=== PATIENT | female | born 1975 | race Caucasian/White ===

== ENCOUNTER 2016-09-08 22:38 | Emergency (ER) | payer OTHER ==
[2016-09-08 23:41] LABS: HCG,QUALITATIVE URINE NEGATIVE; SPECIFIC GRAVITY 1.015 (1.001-1.030); URINE BILIRUBIN NEGATIVE (NEGATIVE); URINE BLOOD NEGATIVE (NEGATIVE); URINE GLUCOSE (UA) NEGATIVE (NEGATIVE); URINE LEUKOCYTE ESTERASE NEGATIVE (NEGATIVE); URINE NITRITE NEGATIVE (NEGATIVE); URINE PROTEIN NEGATIVE (NEGATIVE); URINE UROBILINOGEN NORMAL (0-1 mg/dl)
[2016-09-08 23:42] LABS: URINE APPEARANCE CLEAR; URINE COLOR AMBER
[2016-09-09 00:25] LABS: ABSOLUTE NEUTROPHIL COUNT 4.3 K/mm3 (1.8-7.7); BASO % 0.4 % (0.2-1.0); EOS # 0.1 (0.0-0.5); EOS % 0.9 % (0.9-2.9); HEMATOCRIT 35.5 % (37.0-47.0); HEMOGLOBIN 11.6 gm/l (12.0-16.0); IMM NEUT% 0.3 % (0-1); LYMPH % 29.6 % (15-45); MEAN CELL VOLUME 93.9 fl (81.0-99.0); MEAN CORPUSCULAR HEMOGLOBIN 30.7 pg (27.0-31.0); MEAN CORPUSCULAR HGB CONC 32.7 g/dl (33.0-37.0); MONO # 0.4 (0.0-0.8); MONO % 5.6 % (4-12); NEUT % 63.2 % (43-75); PLATELET COUNT 223 K/mm3 (130-400); RED CELL DISTRIBUTION WIDTH 11.9 % (11.5-14.5)
[2016-09-09 00:42] LABS: ALB/GLOB RATIO 1.5 (>1.0); CALCIUM 8.5 mg/dL (8.6-10.3)
[2016-09-09] MEDS ORDERED: KETOROLAC TROMETHAMINE 60 MG/2 ML VIAL ONE (02:34)
[2016-09-09] MEDS ORDERED: METOCLOPRAMIDE HCL 5 MG/ML 2ML VIAL ONE (02:35)
--- NOTE | 2016-09-09 07:32 | US ---
ABDOMINAL-LIMITED COMPARISON: None HISTORY: Right upper quadrant pain for one week. Nausea and vomiting. FINDINGS: Gall bladder: Length 5.6 cm and wall thickness 2.2 mm. Nonmobile echogenic nonshadowing structure within the lumen, 3 x 5 x 3 mm, evidence of a polyp. Common hepatic duct: 1 mm. Common bile duct: 2.4 mm. IMPRESSION: 1. 5 mm gallbladder polyp. No cholelithiasis or cholecystitis. 2. Normal diameter of the bile ducts. Preliminary report by [facility] radiologist Deric Thompson MD, 09/09/2016 at 01:32
== END 2016-09-09 02:58 | disposition home or self-care (01) ==
LOC: ED 22:38
DX: R10.9 Unspecified abdominal pain (principal); F17.219 Nicotine dependence, cigarettes, with unspecified nicotine-induced disorders
CPT/HCPCS: 83690; 81025; 85025; 80053; 81003; 76705; 99283 ×2; 96372 ×2; J2765; J1885